=== PATIENT | female | born 1975 | race Caucasian/White ===

== ENCOUNTER 2018-01-06 07:35 | Observation (INO) | payer OTHER, SELFPAY ==
[2018-01-06] MEDS ORDERED: PROMETHAZINE 25 MG/ML VIAL ONE (08:03)
[2018-01-06] MEDS ORDERED: FENTANYL CITR 100 MCG/2 ML ONE ×3 (08:04→21:00)
[2018-01-06] MEDS ORDERED: NA CHLORIDE 0.9% 1,000 ML ONE (08:04)
[2018-01-06 08:34] LABS: Absolute Lymphocytes (CBC) 0.8 K/uL (0.7-4.9); Absolute Monocytes 0.7 K/uL (0.1-1.3); Absolute Neutrophil 13.3 K/uL (1.8-8.0); Basophils % 0.2 % (0-1.3); Eosinophils % 0.1 % (0-4.4); Hematocrit 44.1 % (36.0-45.0); Lymphocytes % 5.2 % (15.3-44.8); MCH 27.8 pg (27.0-35.0); MPV 8.6 fL (7.6-11.3); Monocytes % 4.9 % (3.3-12.3); RBC Red Blood Cell Count 5.25 M/uL (3.86-4.86)
[2018-01-06 08:46] LABS: Potassium 3.7 mEq/L (3.6-5.0)
[2018-01-06 08:52] LABS: Albumin 4.8 g/dL (3.2-5.5); Bilirubin Direct 0.1 mg/dL (0-0.2); Bilirubin Total 0.5 mg/dL (0.3-1.2); Protein, Total 8.2 g/dL (6.0-8.3)
[2018-01-06 09:18] LABS: Blood Morphology Comment NOT SEEN (NOT SEEN); Platelet Estimate ADEQ
--- NOTE | 2018-01-06 09:35 | EDPHYS ---
Physician Documentation [facility] Name: Alda Luu Age: 42 yrs Sex: Female : 1975 Arrival Date: 01/06/2018 Time: 07:39 Bed 14 Private MD: Edilia Long K ED Physician Amaury Zimmer HPI: 01/06 08:24 This 42 yrs old Female presents to ER via Ambulatory with complaints of snw Abdominal Pain, Nausea. 08:24 The patient presents with abdominal pain in the right upper quadrant. Onset: The snw symptoms/episode began/occurred suddenly, at 04:00, and became persistent. The symptoms radiate to right back. Associated signs and symptoms: Pertinent positives: nausea. The symptoms are described as constant. Severity of pain: At its worst the pain was severe incapacitating in the emergency department the pain is unchanged. The patient has not experienced similar symptoms in the past. The patient has not recently seen a physician, the patient's primary care provider is Dr. Dr. Long. Historical: - Allergies: 07:57 NKA; iw - Home Meds: 07:57 None [Active]; iw - PMHx: 07:57 None; iw - PSHx: 07:57 partial hysterectomy; iw 07:57 ; iw - Immunization history:: Adult Immunizations up to date. - Social history:: Smoking status: Patient/guardian denies using tobacco. - Ebola Screening: : No symptoms or risks identified at this time. ROS: 08:24 Eyes: Negative for injury, pain, redness, and discharge, ENT: Negative for injury, snw pain, and discharge, Neck: Negative for injury, pain, and swelling, Cardiovascular: Negative for chest pain, palpitations, and edema, Respiratory: Negative for shortness of breath, cough, wheezing, and pleuritic chest pain, : Negative for injury, bleeding, discharge, and swelling, MS/Extremity: Negative for injury and deformity, Skin: Negative for injury, rash, and discoloration, Neuro: Negative for headache, weakness, numbness, tingling, and seizure. 08:24 Constitutional: Positive for body aches, poor PO intake. 08:24 Abdomen/GI: Positive for abdominal pain, nausea, of the right upper quadrant. 08:24 Back: Positive for pain at rest, radiated pain. Exam: 08:22 Head/Face: Normocephalic, atraumatic. Eyes: Pupils equal round and reactive to light, snw extra-ocular motions intact. Lids and lashes normal. Conjunctiva and sclera are non-icteric and not injected. Cornea within normal limits. Periorbital areas with no swelling, redness, or edema. ENT: Nares patent. No nasal discharge, no septal abnormalities noted. Tympanic membranes are normal and external auditory canals are clear. Oropharynx with no redness, swelling, or masses, exudates, or evidence of obstruction, uvula midline. Mucous membranes moist. Neck: Trachea midline, no thyromegaly or masses palpated, and no cervical lymphadenopathy. Supple, full range of motion without nuchal rigidity, or vertebral point tenderness. No Meningismus. Chest/axilla: Normal chest wall appearance and motion. Nontender with no deformity. No lesions are appreciated. Cardiovascular: Regular rate and rhythm with a normal S1 and S2. No gallops, murmurs, or rubs. Normal PMI, no JVD. No pulse deficits. Respiratory: Lungs have equal breath sounds bilaterally, clear to auscultation and percussion. No rales, rhonchi or wheezes noted. No increased work of breathing, no retractions or nasal flaring. Back: No spinal tenderness. No costovertebral tenderness. Full range of motion. Skin: Warm, dry with normal turgor. Normal color with no rashes, no lesions, and no evidence of cellulitis. MS/ Extremity: Pulses equal, no cyanosis. Neurovascular intact. Full, normal range of motion. Neuro: Awake and alert, GCS 15, oriented to person, place, time, and situation. Cranial nerves II-XII grossly intact. Motor strength 5/5 in all extremities. Sensory grossly intact. Cerebellar exam normal. Normal gait. Psych: Awake, alert, with orientation to person, place and time. Behavior, mood, and affect are within normal limits. 08:22 Constitutional: The patient appears alert, comatose, pale, restless, uncomfortable. 08:22 Abdomen/GI: Inspection: abdomen appears normal, Bowel sounds: normal, Palpation: moderate abdominal tenderness, severe abdominal tenderness, in the right upper quadrant. Vital Signs: 07:52 BP 145 / 101; Pulse 65; Resp 15; Temp 98.2; Pulse Ox 100% ; Pain 8/10; hb 09:41 BP 111 / 68; Pulse 65; Resp 14; Pulse Ox 100% on R/A; hb 10:39 BP 105 / 68; Pulse 62; Resp 18; Pulse Ox 99% on R/A; aj1 11:45 BP 107 / 69; Pulse 65; Resp 18; Pulse Ox 99% ; aj1 12:24 BP 112 / 75; Pulse 71; Resp 18; Pulse Ox 100% on R/A; aj1 MDM: 07:53 Patient medically screened. snw 09:32 Data reviewed: vital signs, nurses notes. Data interpreted: Pulse oximetry: on room air snw is 100 %. Interpretation: normal. Counseling: I had a detailed discussion with the patient and/or guardian regarding: the historical points, exam findings, and any diagnostic results supporting the discharge/admit diagnosis, the presence of at least one elevated blood pressure reading (>120/80) during this emergency department visit, lab results, radiology results, the need for further work-up and treatment in the hospital. Physician consultation: Amaury Zimmer MD was contacted at 09:32, regarding consult, Dr. Zimmer will call Dr. Lantigua for tx plan. 01/06 08:00 Order name: Basic Metabolic Panel; Complete Time: 09:09 snw 01/06 08:00 Order name: CBC with Diff; Complete Time: 09:31 snw 01/06 08:00 Order name: Hepatic Function; Complete Time: 09:09 snw 01/06 08:00 Order name: Lipase; Complete Time: 09:09 snw 01/06 08:00 Order name: Urine Microscopic Only; Complete Time: 10:30 snw 01/06 08:00 Order name: Blood Culture* snw 01/06 08:00 Order name: US Abdomen Limited; Complete Time: 10:06 snw 01/06 09:18 Order name: Manual Differential; Complete Time: 09:31 EDMS 01/06 09:59 Order name: Urine Dipstick--Ancillary (enter results) bd 01/06 09:59 Order name: Urine --Ancillary (enter results) bd 01/06 09:59 Order name: Urine Dipstick-Ancillary; Complete Time: 10:30 EDMS 01/06 09:59 Order name: Urine --Ancillary; Complete Time: 10:30 EDMS 01/06 08:00 Order name: IV Saline Lock; Complete Time: 08:23 snw 01/06 08:00 Order name: Labs collected and sent; Complete Time: 08:23 snw 01/06 08:00 Order name: Urine Dipstick-Ancillary (obtain specimen); Complete Time: 09:48 snw 01/06 09:32 Order name: NPO; Complete Time: 09:41 snw Administered Medications: 08:15 Drug: fentaNYL (PF) 50 mcg Route: IVP; Site: right antecubital; hb 08:15 Drug: Phenergan 6.25 mg Route: IVP; Site: right antecubital; hb 08:15 Drug: NS 0.9% 1000 ml Route: IV; Rate: 125 ml/hr; Site: right antecubital; hb 10:26 Drug: Mefoxin 1 grams Route: IVPB; Infused Over: 30 mins; Site: right antecubital; aj1 Disposition: 01/06/18 09:34 Hospitalization ordered by Toro Lantigua for Observation. Preliminary diagnosis is Cholecystitis. - Bed requested for Telemetry/MedSurg (observation). - Status is Observation. iw - Condition is Stable. - Problem is new. - Symptoms are unchanged. UTI on Admission? No Addendum: 01/08/2018 09:00 Co-signature as Attending Physician, Amaury Zimmer MD I agree with the assessment and c stanley plan of care. Signatures: Dispatcher [employer] EDOH Zuleyma Polanco Angela, RN RN aj1 Amaury Zimmer MD MD cha Therrien, Shelly, DISTRICT LEADER-C DISTRICT LEADER-Csnw Lena Nassar, CARLEY RN Daylin Mccallum RN RN Corrections: (The following items were deleted from the chart) 01/06 09:34 09:33 Chart complete. snw snw 12:33 09:34 Hospitalization Ordered by Toro Lantigua MD for Observation. Preliminary bd diagnosis is Cholecystitis. Bed requested for Telemetry/MedSurg (observation). Status is Observation. Condition is Stable. Problem is new. Symptoms are unchanged. UTI on Admission? No. snw 14:24 12:33 01/06/2018 09:34 Hospitalization Ordered by Toro Lantigua MD for Observation. iw Preliminary diagnosis is Cholecystitis. Bed requested for Telemetry/MedSurg (observation). Status is Observation. Condition is Stable. Problem is new. Symptoms are unchanged. UTI on Admission? No. bd
--- NOTE | 2018-01-06 09:35 | ER ---
Nurse's Notes [facility] Name: Alda Luu Age: 42 yrs Sex: Female : 1975 Arrival Date: 01/06/2018 Time: 07:39 Bed 14 Private MD: Edilia Long K Diagnosis: Cholecystitis Presentation: 01/06 07:55 Presenting complaint: Patient states: RUQ pain that radiates to back and nausea since hb this morning. Transition of care: patient was not received from another setting of care. Onset of symptoms was January 06, 2018. Risk Assessment: Do you want to hurt yourself or someone else? Patient reports no desire to harm self or others. Initial Sepsis Screen: Does the patient meet any 2 criteria? No. Patient's initial sepsis screen is negative. Does the patient have a suspected source of infection? No. Patient's initial sepsis screen is negative. Care prior to arrival: None. 07:55 Method Of Arrival: Ambulatory hb 07:55 Acuity: BERNARDO 3 hb Historical: - Allergies: 07:57 NKA; iw - Home Meds: 07:57 None [Active]; iw - PMHx: 07:57 None; iw - PSHx: 07:57 partial hysterectomy; iw 07:57 ; iw - Immunization history:: Adult Immunizations up to date. - Social history:: Smoking status: Patient/guardian denies using tobacco. - Ebola Screening: : No symptoms or risks identified at this time. Screenin:56 Abuse screen: Denies threats or abuse. Denies injuries from another. Nutritional hb screening: No deficits noted. Tuberculosis screening: No symptoms or risk factors identified. Fall Risk None identified. Assessment: 08:10 General: Appears in no apparent distress. Behavior is cooperative, restless. Pain: Pain hb currently is 8 out of 10 on a pain scale. Neuro: Level of Consciousness is awake, alert, obeys commands, Oriented to person, place, time, situation. Cardiovascular: Heart tones S1 S2 present Capillary refill < 3 seconds Patient's skin is warm and dry. Respiratory: Airway is patent Trachea midline Respiratory effort is even, unlabored, Respiratory pattern is regular, symmetrical, Breath sounds are clear bilaterally. GI: Abdomen is non-distended, Bowel sounds present X 4 quads. Abd is soft X 4 quads Abdomen is tender to palpation in right upper quadrant Reports lower abdominal pain, nausea. : No signs and/or symptoms were reported regarding the genitourinary system. EENT: No signs and/or symptoms were reported regarding the EENT system. Derm: No signs and/or symptoms reported regarding the dermatologic system. Skin is intact, is healthy with good turgor, Skin is pink, warm \T\ dry. Musculoskeletal: No signs and/or symptoms reported regarding the musculoskeletal system. 10:39 General: Appears in no apparent distress. comfortable, Behavior is calm, cooperative, aj1 appropriate for age. Pain: Denies pain. Neuro: Level of Consciousness is awake, alert, obeys commands, Oriented to person, place, time, situation. Cardiovascular: Patient's skin is warm and dry. Respiratory: Airway is patent Respiratory effort is even, unlabored, Respiratory pattern is regular, symmetrical. GI: Abdomen is non-distended, Bowel sounds present X 4 quads. Abd is soft X 4 quads Reports nausea. : No signs and/or symptoms were reported regarding the genitourinary system. EENT: No signs and/or symptoms were reported regarding the EENT system. Derm: No signs and/or symptoms reported regarding the dermatologic system. Skin is pink, warm \T\ dry. normal. Musculoskeletal: No signs and/or symptoms reported regarding the musculoskeletal system. Circulation, motion, and sensation intact. 11:45 Reassessment: Patient appears in no apparent distress at this time. No changes from aj1 previously documented assessment. Patient and/or family updated on plan of care and expected duration. Pain level reassessed. Patient is alert, oriented x 3, equal unlabored respirations, skin warm/dry/pink. 12:25 Reassessment: Patient appears in no apparent distress at this time. No changes from aj1 previously documented assessment. Patient and/or family updated on plan of care and expected duration. Pain level reassessed. Patient is alert, oriented x 3, equal unlabored respirations, skin warm/dry/pink. 13:19 Reassessment: Patient appears in no apparent distress at this time. No changes from aj1 previously documented assessment. Patient and/or family updated on plan of care and expected duration. Pain level reassessed. Patient is alert, oriented x 3, equal unlabored respirations, skin warm/dry/pink. 13:19 Reassessment: Attempted to call report, receiving nurse unavailable to come to the aj1 phone, will call back. 13:47 Reassessment: attempted to call report, receiving nurse giving report to another facility on pt she is transferring. Vital Signs: 07:52 BP 145 / 101; Pulse 65; Resp 15; Temp 98.2; Pulse Ox 100% ; Pain 8/10; hb 09:41 BP 111 / 68; Pulse 65; Resp 14; Pulse Ox 100% on R/A; hb 10:39 BP 105 / 68; Pulse 62; Resp 18; Pulse Ox 99% on R/A; aj1 11:45 BP 107 / 69; Pulse 65; Resp 18; Pulse Ox 99% ; aj1 12:24 BP 112 / 75; Pulse 71; Resp 18; Pulse Ox 100% on R/A; aj1 ED Course: 07:39 Patient arrived in ED. mr 07:40 Edilia Long MD is Private Physician. mr 07:48 Daylin Mccallum, RN is Primary Nurse. hb 07:51 Kinza Peter FNP-C is [facility]. snw 07:52 Amaury Zimmer MD is Attending Physician. snw 07:56 Triage completed. hb 07:56 Arm band placed on left wrist. hb 08:10 Patient has correct armband on for positive identification. Placed in gown. Bed in low hb position. Call light in reach. Side rails up X 1. 08:15 Inserted saline lock: 22 gauge in right antecubital area, using aseptic technique. hb Blood collected. 09:03 Ultrasound completed. Patient tolerated well. Notified CEMENT RUBBER/DENISE olsen . sg3 09:27 US Abdomen Limited In Process Unspecified. EDMS 09:34 Toro Lantigua MD is Hospitalizing Provider. snw 09:52 Blood Culture* Sent. ag 09:52 Urine Microscopic Only Sent. ag 09:52 Urine collected: clean catch specimen, clear, daniel colored. ag Administered Medications: 08:15 Drug: fentaNYL (PF) 50 mcg Route: IVP; Site: right antecubital; hb 08:15 Drug: Phenergan 6.25 mg Route: IVP; Site: right antecubital; hb 08:15 Drug: NS 0.9% 1000 ml Route: IV; Rate: 125 ml/hr; Site: right antecubital; hb 10:26 Drug: Mefoxin 1 grams Route: IVPB; Infused Over: 30 mins; Site: right antecubital; aj1 Outcome: 09:34 Decision to Hospitalize by Provider. snw 14:04 Admitted to Med/surg Report called to CARLEY Myles iw 14:24 Patient left the ED. iw Signatures: Dispatcher [employer] EDNaida Shi RN RN aj1 Kinza Peter, CRIMINAL JUSTICE TEACHER-C CRIMINAL JUSTICE TEACHER-Csnw Kristen Schuster mr Lena Nassar RN RN iw Gallardo, Ana ag Baxter, Heather, RN RN Naty Bejarano 3
--- NOTE | 2018-01-06 09:50 | RAD REPORT ---
EXAM DESCRIPTION: US - Abdomen Exam Limited - 01/06/2018 9:27 am CLINICAL HISTORY: Abdominal pain. COMPARISON: None. FINDINGS: The gallbladder demonstrates a large gallstone in the neck. The gallbladder is filled with echogenic material, presumably sludge and appears distended. Gallbladder wall is mildly thickened 6 mm. The common bile duct is normal measuring 5 mm. The liver demonstrates no findings of intrahepatic biliary dilatation. IMPRESSION: Cholelithiasis with extensive gallbladder sludge and gallbladder distension. The gallbl adder wall is mildly thickened measuring 6 mm. Early acute cholecystitis is a possibility.
[2018-01-06 10:15] LABS: Urine Blood NEGATIVE (NEG); Urine Glucose NEGATIVE (NEG); Urine Protein NEGATIVE (NEG); Urine Specific Gravity 1.015 (1.005-1.030); Urine pH 8.5 (5.0-7.0)
[2018-01-06] MEDS ORDERED: CEFOXITIN/SWI 1gm 1 GM/10 ML SYR IV SCH ×2 (10:15→18:00)
[2018-01-06 10:17] LABS: Urine Bacteria <20 /HPF (<20); Urine RBC <5 /HPF (NONE SEEN)
[2018-01-06 10:18] LABS: Urine Amorphous Sediment 1+ /HPF (NONE SEEN); Urine Culture Reflex Order NOT NEEDED
[2018-01-06] MEDS ORDERED: MORPHINE 4 MG/ML SYR IV PRN ×2 (13:19→22:12)
[2018-01-06] MEDS ORDERED: ONDANSETRON 4 MG/2 ML VIAL IV PRN (13:19)
[2018-01-06] MEDS ORDERED: ACETAMINOPHEN 500 MG TAB PO PRN (13:19)
[2018-01-06] MEDS: D5 0.45 NS 1,000 ML IV SCH ×2 (16:11→21:19)
[2018-01-06] MEDS ORDERED: CEFOXITIN SODIUM 1 GM/VIAL IVPB SCH (17:00)
[2018-01-06] MEDS: CEFOXITIN/SWI 1gm 1 GM/10 ML SYR IV SCH ×2 (18:53→23:27)
--- NOTE | 2018-01-06 20:06 | P.HP ---
Date of Service: 01/06/18 PC:This 41-year-old female presented to the emergency room with severe right upper quadrant abdominal pain for diagnosis and treatment. HPC: Patient will have 4 o'clock in the morning with severe right upper quadrant abdominal pain. Radiating to her back. Describes it as extremely severe. Doubled her over and all she she could do was laying in the position. The she was brought to the bowel emergency room for evaluation. PMH: Negative PSHx: , partial hysterectomy SOC: no known allergies SYS REVIEW: No cough, wheeze, shortness of breath. No chest pain or palpitations. Denies any urinary complaints. States that she has not had a previous episode like this before. O/E OH alert, comfortable at the moment HEENT: not jaundiced Chest: Chest movement equal bilaterally ABD: minimal right upper quadrant tenderness LOCO: intact DATA: has documented gallstones with suspicion of stone stuck at the cystic duct IMPRESSION: acute on chronic cholecystitis with cholelithiasis, biliary colic PLAN: I will take her to the operating room for laparoscopic possible open cholecystectomy with cholangiogram. The risks of this procedure has been discussed. The possibility of bleeding, infection, injury to bowel those blood vessels and antacids has been describes. The possible need for open and/or further surgeries and procedures was discussed. She understands and wants to proceed.
[2018-01-06] MEDS ORDERED: PROPOFOL 200 MG/20 ML VIAL IV ONE (20:12)
[2018-01-06] MEDS ORDERED: ROCURONIUM 50 MG/5 ML VIAL IV ONE (20:12)
[2018-01-06] MEDS ORDERED: LIDOCAINE 2% MPF 5 ML VIAL ONE (20:12)
[2018-01-06] MEDS ORDERED: Ringers Lactate 1,000 ML IV ONE (20:16)
[2018-01-06] MEDS ORDERED: BUPIVACAINE 0.5% Inj,MDV 50 mL VIAL ONE (20:22)
[2018-01-06] MEDS ORDERED: DEXAMETHASONE 10 MG/ML VIAL ONE (20:53)
[2018-01-06] MEDS ORDERED: ONDANSETRON HCL 40 MG/20 ML VIAL ONE (20:54)
[2018-01-06] MEDS ORDERED: KETOROLAC 30 MG/ML INJ ONE (20:54)
[2018-01-06] MEDS ORDERED: GLYCOPYRROLATE 0.2 MG/ML SYR ONE (21:28)
[2018-01-06] MEDS ORDERED: NEOSTIGMINE 1 MG/ML -5 ML SYRINGE ONE (21:28)
--- NOTE | 2018-01-06 22:02 | P.OP ---
Preoperative diagnosis: The acute on chronic cholecystitis with cholelithiasis, biliary colic Postoperative diagnosis: The same Primary procedure: Laparoscopic cholecystectomy Secondary procedure: Intraoperative cholangiogram Anesthesia: General Estimated blood loss: Less than 15 cc Specimen: 1 gallbladder and contents Findings: Distended edematous gallbladder with stone impacted in the neck Operative Technique: The patient was brought to the operating room and placed supine on the table. After the induction of adequate general endotracheal anesthesia, the area of the abdomen was prepped with a DuraPrep solution, and she was draped in usual aseptic manner. A subumbilical incision was made. This was brought down through the skin and subcutaneous tissue. The Visiport was used to enter the peritoneal cavity and created pneumoperitoneum to approximately 12 mm of mercury. Under direct vision , a 5 mm trocar was placed in the upper midline, and another 2 5 mm trocars were placed on the right lateral side of the abdomen. With the patient placed in reverse Trendelenburg and rolled to the left where the visualized right upper quadrant. We could see a markedly distended and edematous gallbladder. The contents were aspirated using an aspirating needle. A grasper was placed on the edematous foote of the gallbladder and applying lateral traction we were able to place another down towards the Moni's pouch. There was a stone loosely stuck in the neck and head area. Adhesions were taken down of the omentum from that area. Gentle dissection was begun to expose cystic duct and artery. Having obtained the critical view, a clip was placed between the gallbladder and the cystic duct. An opening was made into the cystic duct through which we obtained a normal intraoperative cholangiogram. The catheter was now withdrawn. Clips were placed on the distal portion of the cystic the cystic artery was clipped and divided in the usual way. The gallbladder was now dissected free from the liver bed and placed into the Endo a pouch. It was brought up to the umbilical trocar site. Due to the size and edematous nature of the gallbladder was necessary to open the skin as well as the fascia itself. This having been done we were now able to extract this large edematous gallbladder. Attention was turned towards the umbilical trocar site. It was reapproximated using 3 absorbable sutures placed using the Endo Close. The pneumoperitoneum was reestablished. Irrigating fluid was aspirated from the right upper quadrant. The gallbladder fossa was irrigated with saline solution. Adequate hemostasis having been assured, irrigating fluid was aspirated once again from the peritoneal cavity. The anterior abdominal wall was AGUILA blocked using 0.25% Marcaine. The pneumoperitoneum was collapsed, the trocars removed , and reta applied to the skin. At the end of the procedure she was stable and since his recovery room. Needle sponge instrument count were correct. No drains were placed. Once specimen was sent for histopathology. Complications: None Transferred to: Recovery Room Condition: Good
[2018-01-06] MEDS ORDERED: HYDROCODONE/APAP 7.5/325 MG TAB PO PRN (22:12)
--- NOTE | 2018-01-06 22:32 | RAD REPORT ---
EXAM DESCRIPTION: RAD - Cholangiogram Oper-Xray Or - 01/06/2018 10:05 pm CLINICAL HISTORY: Cholecystectomy COMPARISON: None. FINDINGS: Intraoperative fluoroscopic spot images from intraoperative cholangiogram are submitted. C ystic duct injection was performed by operating surgeon. Intra and extrahepatic biliary tree are with in normal limits. There is no evidence of retained common duct stone. IMPRESSION: Negative for retained common duct stone.
[2018-01-07] MEDS: D5 0.45 NS 1,000 ML IV SCH ×2 (02:16→04:51)
[2018-01-07] MEDS: CEFOXITIN/SWI 1gm 1 GM/10 ML SYR IV SCH (05:19)
--- NOTE | 2018-01-07 11:51 | P.DS ---
Admission Date: 01/06/18 Discharge Date: 01/07/18 Disposition: ROUTINE DISCHARGE Discharge Condition: GOOD Reason for Admission: Acute postoperative abdominal pain Procedures: Laparoscopic cholecystectomy with cholangiogram Brief History of Present Illness: Patient presents emergency room with severe right upper quadrant abdominal pain for diagnosis and treatment. She was found to have acute on chronic cholecystitis with cholelithiasis. Hospital Course: The patient was seen evaluated in the emergency room. Was found have acute on chronic cholecystitis with cholelithiasis. She was brought into the hospital and later went for a laparoscopic cholecystectomy with cholangiogram. She tolerated these procedures well, no stones were seen on the cholangiogram. Today she is up ambulating, tolerating a diet, and is anxious to be discharged. Vital Signs/Physical Exam: Temp Pulse Resp BP Pulse Ox 97.5 F 72 20 116/77 97 01/07/18 08:00 01/07/18 08:00 01/07/18 08:00 01/07/18 08:00 01/07/18 08:00 Laboratory Data at Discharge: WBC 14.9 K/uL (4.3-10.9) H 01/06/18 08:15 Hgb 14.6 g/dL (12.0-15.0) 01/06/18 08:15 Hct 44.1 % (36.0-45.0) 01/06/18 08:15 Plt Count 259 K/uL (152-406) 01/06/18 08:15 Sodium 136 mEq/L (135-145) 01/06/18 08:15 Potassium 3.7 mEq/L (3.6-5.0) 01/06/18 08:15 BUN 10 mg/dL (6-20) 01/06/18 08:15 Creatinine 0.79 mg/dL (0.44-1.00) 01/06/18 08:15 Glucose 118 mg/dL (65-120) 01/06/18 08:15 Total Bilirubin 0.5 mg/dL (0.3-1.2) 01/06/18 08:15 AST 24 IU/L (10-42) 01/06/18 08:15 ALT 23 IU/L (10-60) 01/06/18 08:15 Alkaline Phosphatase 81 IU/L (42-121) 01/06/18 08:15 Lipase 28 U/L (22-51) 01/06/18 08:15 Home Medications: Amox/Clavulanate [Augmentin 875-125 Tab*] 1 tab PO BID 01/06/18
== END 2018-01-07 13:12 | disposition home or self-care (01) ==
LOC: ER 07:35 → ERHOLD 09:34 → 2ND 14:03
PROVIDERS: ADMIT Surgery; ATTEND Surgery
PROC: BF00YZZ Plain Radiography of Bile Ducts using Other Contrast (ICD-10-PCS; 2018-01-06)
PROC: 0FT44ZZ Resection of Gallbladder, Percutaneous Endoscopic Approach (ICD-10-PCS; principal; 2018-01-06 08:30)
DX: K80.12 Calculus of gallbladder with acute and chronic cholecystitis without obstruction (principal)
CPT/HCPCS: 36415; 74300; 76705; 80048; 80076; 81003; 81015; 81025; 83690; 85025; 87040; 88304; 96374; 96375; 99285; G0378; J1100; J2405; J2550; J2710; J3010; J7030; Q9967

== ENCOUNTER 2022-06-22 19:43 | Emergency (ER) | payer OTHER ==
--- OUTSIDE RECORDS SUMMARY | 2022-06-22 19:46 | XMS REPORT | Continuity of Care Document ---
:[address] [facility] t Address [address] [place] [address] Dr. Christianson [address] [place] [address] Care Team Providers Name Role Phone PCP, PATIENT DOES NOT HAVE A Primary Care Physician DR ARMAAN Still Attending Clinician Unavailable CHRKEVYN_F Attending Clinician Unavailable David HOWE, Jacqui Cuevas Attending Clinician Unavailable Tiffany Rodriguez Attending Clinician TIFFANY SMITH Attending Clinician Unavailable Doctor Unassigned, [place] Attending Clinician Unavailable DR ARMAAN BRIDGES Admitting Clinician Unavailable EDELMIRA Admitting Clinician Unavailable Payers Payer Name Policy Type Policy Number Effective Date Expiration Date Juan Pablo feliciano [facility] [id number] 2018 [facility] 00:00:00 HEALTHCARE AETNA (POS) [id number] 2014 00:00:00 Problems Condition Condition Condition Status Onset Resolution Last Treating Co mments Source Name Details Category Date Date Treatment Clinician Date Essential Essential Problem Active 2021-07 Swe tayo hypertensi Hypertensi 0-24 Co mmuni on on 00:00: ty [facility] History of History of Problem Active 2021-07 S weeny hypertensi Hypertensi 0-24 Co mmuni on on 00:00: ty 00 [facility] No known No known Disease Unive rs active active ity of problems problems [facility] Allergies, Adverse Reactions, Alerts Allergy Allergy Status Severity Reaction(s) Onset Inactive Treating Comm ents Source Name Type Date Date Clinician MISC-Oth SOURAV Active Severe itching [facility] NO KNOWN Drug Active Univers ALLERGIE Class ity of S [facility] Social History Social Habit Start Date Stop Date Quantity Comments Source Exposure to 2022-01-28 2022-02-07 Yes [facility] SARS-CoV-2 00:00:00 16:48:00 [facility] (event) Branch Tobacco use and 2022-02-07 2022-02-07 Smokeless tobacco Un iversity of exposure 00:00:00 00:00:00 non-user [facility] Alcohol intake 2022-02-07 2022-02-07 Lifetime University of 00:00:00 00:00:00 non-drinker [facility] (finding) Branch Sex Ass[birth year] Universit y of 00:00:00 00:00:00 [facility] Smoking Status Start Date Stop Date Source Never Smoker [facility] Tobacco smoking consumption [facility] Branch Medications Ordered Filled Start Stop Current Ordering Indication Dosage Frequency Signature Comments Components Source Medication Medication Date Date Medication? Clinician (SIG) Name Name fluticasone Yes [id number] 2{spray Use 2 Univers propionate 7-11 } Sprays in ity of 50 00:00: each [place] mcg/actuati 00 nostril in Me dical on nasal the Branch spray morning. fexofenadin Yes [id number] 1{tbl} Take 1 Univers e-pseudoeph 7-11 tablet by ity of edrine 00:00: mouth in [place] (TERRENCE-D) 00 the Medical 60-120 mg morning Branch per tablet and 1 tablet in the evening. fluticasone Yes [id number] 2{spray Use 2 Univers propionate 7-11 } Sprays in ity of 50 00:00: each [place] mcg/actuati 00 nostril in Me dical on nasal the Branch spray morning. fexofenadin Yes [id number] 1{tbl} Take 1 Univers e-pseudoeph 7-11 tablet by ity of edrine 00:00: mouth in [place] (TERRENCE-D) 00 the Medical 60-120 mg morning Branch per tablet and 1 tablet in the evening. fluticasone Yes [id number] 2{spray Use 2 Univers propionate 7-11 } Sprays in ity of 50 00:00: each [place] mcg/actuati 00 nostril in Me dical on nasal the Branch spray morning. fexofenadin Yes [id number] 1{tbl} Take 1 Univers e-pseudoeph 7-11 tablet by wil 00:00: mouth in [place] (TERRENCE-D) 00 the Medical 60-120 mg morning Branch per tablet and 1 tablet in the evening. losartan 25 losartan 25 No losartan [place] mg tablet mg tablet 25 mg Comm uni TAKE 1 TAKE 1 tablet ty TABLET BY TABLET BY TAKE 1 Hos [facility]ber MOUTH EVERY MOUTH EVERY TABLET BY l DAY FOR 90 DAY FOR 90 MOUTH Cl inics DAYS DAYS EVERY DAY FOR 90 DAYS Vital Signs Vital Name Observation Time Observation Value Comments Source BP Diastolic 2022-05-23 00:00:00 77 mm[Hg] [facility] Height 2022-05-23 00:00:00 63 [in_i] [facility] BMI (Body Mass 2022-05-23 00:00:00 34.9 kg/m2 [facility]) [facility] BP Systolic 2022-05-23 00:00:00 110 mm[Hg] [facility] Body Weight 2022-05-23 00:00:00 3155.2 [oz_av] [facility] s Systolic blood 2022-02-07 21:50:00 134 mm[Hg] Univer sity of pressure [facility] Diastolic blood 2022-02-07 21:50:00 88 mm[Hg] Unive rsity of [facility] Heart rate 2022-02-07 21:49:00 98 /min [facility] Body temperature 2022-02-07 21:49:00 37.06 [facility] Respiratory rate 2022-02-07 21:49:00 21 /min [facility] Body height 2022-02-07 21:49:00 160 cm [facility] Body weight 2022-02-07 21:49:00 88.95 kg [facility] BMI 2022-02-07 21:49:00 34.74 kg/m2 [facility] Oxygen saturation in 2022-02-07 21:49:00 99 /min [facility] blood by [facility] Pulse oximetry Branch Height 2018-04-20 04:45:00 160.02 CM Weight 2018-04-20 04:45:00 88.45 KG Procedures Procedure Date / Time Performing Clinician Source Performed DEXA, axial skeleton + 2022-05-23 00:00:00 [facility] vertebral fracture [facility] assessment ASSIGNMENT OF BENEFITS 2022-02-07 21:39:50 Doctor [facility]assigned, [facility] [place] [facility] EXCISION OF TIBIAL NERVE 2018-04-20 00:00:00 [facility] OPEN APPR Center Cholecystectomy 2017-07-31 00:00:00 [facility] Partial Hysterectomy 2005-02-28 00:00:00 [facility] Extraction of [place] Tooth [facility] Delivery [facility] Plan of Care Planned Activity Planned Date Details Comments Source Diagnostic Test Pending 2022-05-23 CMP, serum or [facility] 00:00:00 plasma [code = [facility] ics CMP, serum or plasma] Diagnostic Test Pending 2022-05-23 CBC w/ auto diff [facility] 00:00:00 [code = CBC w/ Hospital Clin ics auto diff] Diagnostic Test Pending 2022-05-23 vitamin D, [facility] 00:00:00 25-hydroxy, [facility] total, serum [code = vitamin D, 25-hydroxy, total, serum] Diagnostic Test Pending 2022-05-23 TSH + free T4, [facility] 00:00:00 serum [code = TSH [facility] + free T4, serum] Diagnostic Test Pending 2022-05-23 HbA1c (hemoglobin [facility] 00:00:00 A1c), blood [code [facility] linics = HbA1c (hemoglobin A1c), blood] Diagnostic Test Pending 2022-05-23 lipid panel w/ [facility] 00:00:00 direct LDL[facility] [code = lipid panel w/ direct LDL, serum] Diagnostic Test Pending 2022-05-23 insulin, serum [facility] 00:00:00 [code = insulin, Hospital inics serum] Instructions [facility] s Encounters Start End Encounter Admission Attending Care Care Encounter Source Date/Time Date/Time Type Type Clinicians Facility Department ID 2019-10-25 Inpatient ERIK KING [facility] [id number] [place] 06:00:00 [facility] 2022-05-31 2022-05-31 Outpatient CHRETIEN_F [facility] [id number] [place] 00:00:00 00:00:00 [facility] 2022-05-23 2022-05-23 Outpatient [facility]RETIEN[facility] [id number] [place] 00:00:00 00:00:00 1024 [facility] 2022-05-23 2022-05-23 Kajal [facility] [place] [facility] [place] 00:00:00 00:00:00 Amy [facility] 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 2022-05-19 2022-05-19 Outpatient CHRETIEN_F [facility] [id number] [place] 00:00:00 00:00:00 1020 [facility] 2022-02-08 2022-02-08 Telephone BRYAN Hernandez [id number] [facility] 00:00:00 00:00:00 Jacqui KEN [id number] i ty of [facility] [id number] Marco as [id number] [address] 2022-02-08 2022-02-08 Telephone [facility] [id number] [facility] 00:00:00 00:00:00 [facility] [id number] i ty of [place] [id number] Marco as MIAN?BLEA [phone] [address] MEDICAL OFFICE BUILDING 2022-02-07 2022-02-07 Urgent [facility] [id number] Univers 18:40:00 18:40:00 Care [facility] [id number] i ty of [place] [id number] Marco as MIAN?BLEA [phone] [place] rommel BLAIR [address] [place] [address] MEDICAL OFFICE BUILDING 2022-02-07 2022-02-07 Outpatient R SARAH [facility] [id number] [facility] 18:40:00 17:02:11 TIFFANY nelson o f [facility] 2022-02-07 2022-02-07 Orders Doctor BRYAN [id number] Univers 00:00:00 00:00:00 Only Unassigned, SUELLEN [id number] ity of [place] [facility] [id number] Marco as [phone] [address] 2018-04-20 2018-04-20 Outpatient Rowena BRIDGES [facility] [id number] [address] [place] [address] 04:39:00 06:55:00 ARMAAN [facility] Results Test Description Test Time Test Comments Results Result Comments Source URINE MONOCLONALFB 2018-04-20 08:01:00 Test Item Value Reference Range Interpretation Comme nts PREG UR (test code = PGU) NEGATIVE NEGATIVE
--- NOTE | 2022-06-22 20:52 | RAD REPORT ---
EXAM DESCRIPTION: RAD - Knee Left 3 View - 06/22/2022 8:30 pm CLINICAL HISTORY: PAIN COMPARISON: No comparisons FINDINGS/IMPRESSION: No acute fracture. No malalignment. No significant focal degenerative changes. Linear sclerosis in the proximal tibial diaphysis unlikely trauma related.
[2022-06-22] MEDS ORDERED: LIDOCAINE 1% MPF 5 ML VIAL ONE (21:17)
[2022-06-22] MEDS ORDERED: HYDROCODONE/APAP 10/325 TAB ONE (21:18)
[2022-06-22] MEDS ORDERED: TETANUS & DIPHTHERIA TOX,ADULT 0.5 ML VIAL ONE (21:18)
[2022-06-22] MEDS ORDERED: LIDOCAINE 1% MPF 30 ML VIAL ONE (21:21)
[2022-06-22] MEDS ORDERED: ONDANSETRON 4 MG/2 ML VIAL ONE (21:32)
[2022-06-22] MEDS ORDERED: ONDANSETRON 4 MG (ODT) TAB ONE (21:33)
--- NOTE | 2022-06-22 22:03 | EDPHYS ---
Physician Documentation [facility] Name: Alda Luu Age: 46 yrs Sex: Female : 1975 Arrival Date: 06/22/2022 Time: 19:46 Bed 12 Private MD: ED Physician Rafael Celeste HPI: 06/22 19:50 This 46 yrs old Female presents to ER via EMS with complaints of Leg Injury. jh7 19:50 The patient presents with a laceration, 6 cm(s), clean, ragged, pain, that is acute. jh7 The complaints affect the left knee. Context: The problem was sustained at home, resulted from the patient falling, while walking, the patient can partially bear weight, must have assistance, from family. Onset: The symptoms/episode began/occurred acutely. 22:41 Patient slipped and fell on a metal walker mat. Unknown date of last tetanus.. 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 - Social history:: Smoking status: unknown. ROS: 22:41 Constitutional: Negative for fever, chills, and weight loss, Eyes: Negative for injury, jh7 pain, redness, and discharge, ENT: Negative for injury, pain, and discharge, Neck: Negative for injury, pain, and swelling, Cardiovascular: Negative for chest pain, palpitations, and edema, Respiratory: Negative for shortness of breath, cough, wheezing, and pleuritic chest pain, Abdomen/GI: Negative for abdominal pain, nausea, vomiting, diarrhea, and constipation, Back: Negative for injury and pain, Neuro: Negative for headache, weakness, numbness, tingling, and seizure. 22:41 MS/extremity: Positive for injury or acute deformity, laceration, tenderness. 22:41 Skin: Positive for laceration(s). 22:41 All other systems are negative. Exam: 22:41 Constitutional: This is a well developed, well nourished patient who is awake, alert, jh7 and in no acute distress. Head/Face: Normocephalic, atraumatic. ENT: Nares patent. No nasal discharge, no septal abnormalities noted. Oropharynx with no redness, swelling, or masses, exudates, or evidence of obstruction, uvula midline. Mucous membranes moist. Neck: Trachea midline, no thyromegaly or masses palpated, and no cervical lymphadenopathy. Supple, full range of motion without nuchal rigidity, or vertebral point tenderness. No Meningismus. Cardiovascular: Regular rate and rhythm with a normal S1 and S2. No gallops, murmurs, or rubs. Normal PMI, no JVD. No pulse deficits. Respiratory: Lungs have equal breath sounds bilaterally, clear to auscultation and percussion. No rales, rhonchi or wheezes noted. No increased work of breathing, no retractions or nasal flaring. Abdomen/GI: Soft, non-tender, with normal bowel sounds. No distension or tympany. No guarding or rebound. No evidence of tenderness throughout. Back: No spinal tenderness. No costovertebral tenderness. Full range of motion. Neuro: Awake and alert, GCS 15, oriented to person, place, time, and situation. Motor strength 5/5 in all extremities. Sensory grossly intact. Normal gait. 22:41 Musculoskeletal/extremity: ROM: intact in all extremities, Circulation is intact in all extremities. Sensation intact. 22:41 Skin: injury, laceration(s), the wound is approximately 6 cm(s), with a depth of 0.5 cm(s), of the left knee. Vital Signs: 19:51 BP 125 / 87; Pulse 87; Resp 20; Temp 98.7(O); Pulse Ox 100% on R/A; Weight 90.26 kg; kd3 Height 5 ft. 3 in. (160.02 cm); Pain 4/10; 22:20 BP 124 / 80; Pulse 71; Resp 18; Pulse Ox 100% on R/A; kd3 19:51 Body Mass Index 35.25 (90.26 kg, 160.02 cm) kd3 Laceration: 22:15 Wound Repair of 6cm ( 2.4in ) subcutaneous laceration to left knee. Irregularly jh7 shaped.. Skin/tissue flap noted.. Distal neuro/vascular/tendon intact. Anesthesia: Local anesthetic administered with 11 mls of 1% lidocaine. Wound prep: Extensive cleansing by me, Copious irrigation. Skin closed with 11 3-0 Prolene using simple sutures and sterile technique. Dressed with pressure dressing. Patient tolerated well. MDM: 19:53 Patient medically screened. [facility] 22:15 Differential diagnosis: open fracture, closed fracture, contusion, Laceration. Data [facility] reviewed: vital signs, nurses notes, radiologic studies, plain films. Data interpreted: Pulse oximetry: is 100 %. Interpretation: normal. Counseling: I had a detailed discussion with the patient and/or guardian regarding: the historical points, exam findings, and any diagnostic results supporting the discharge/admit diagnosis, to return to the emergency department if symptoms worsen or persist or if there are any questions or concerns that arise at home. Special discussion: Return to the ER in 7 to 10 days for suture removal. Monitor for signs and symptoms of infection.. 06/22 20:01 Order name: XRAY Knee LEFT 3 view; Complete Time: 21:09 [facility] 06/22 20:01 Order name: Dressing - Wound; Complete Time: 21:22 [facility] 06/22 20:01 Order name: Gloves, Sterile; Complete Time: 21:14 [facility] 06/22 20:01 Order name: Prolene, Sutures; Complete Time: 21:22 [facility] 06/22 20:01 Order name: Setup Suture Tray; Complete Time: 21:14 [facility] Administered Medications: 21:22 Drug: [place] (HYDROcodone-acetaminophen) 10 mg-325 mg 1 tabs Route: PO; kd3 22:03 Follow up: Response: No adverse reaction; Pain is decreased kd3 21:54 Drug: Lidocaine-Epinephrine -1%: (1:100,000) 20 ml Volume: 20 ml; Route: Infiltration; kd3 22:02 Drug: Tetanus-Diphtheria Toxoid Adult 0.5 ml {Consumer Relations Complaint Clerk: [employer]. Exp: kd3 10/15/2022. Lot #: [id number]. } Route: IM; Site: right deltoid; 22:03 Follow up: Response: No adverse reaction 3 Disposition: 06/23 02:42 Co-signature as Attending Physician, Rafael Celeste MD. rn Disposition Summary: 06/22/22 22:02 Discharge Ordered Location: Home [facility] Problem: new [facility] Symptoms: have improved [facility] Condition: Stable [facility] Diagnosis - Laceration without foreign body, left knee jh7 - Contusion of left knee 7 Followup: 7 - With: Emergency Department - When: 10 - 14 days - Reason: Staple/Suture removal Discharge Instructions: - Discharge Summary Sheet 7 - Laceration Care, Adult [facility] Forms: - Medication Reconciliation Form 7 - Thank You Letter [facility] Prescriptions: - Cephalexin 500 mg Oral Capsule - take 1 capsule by ORAL route every 12 hours for 7 days; 14 capsule; Refills: 0, jh7 Product Selection Permitted Signatures: Dispatcher [employer] EDRafael Cortes MD MD rn Doucette, Kyli, RN RN kd3 Greta Almonte FNP FNP [facility] Corrections: (The following items were deleted from the chart) 06/22 22:42 19:50 Context: The problem was sustained at home, resulted from the patient falling, jh7 while walking, the patient can partially bear weight, must have assistance, from family, [facility]
--- NOTE | 2022-06-22 22:03 | ER ---
Nurse's Notes [facility] Name: Alda Luu Age: 46 yrs Sex: Female : 1975 Arrival Date: 06/22/2022 Time: 19:46 Bed 12 Private MD: Diagnosis: Laceration without foreign body, left knee;Contusion of left knee Presentation: 06/22 19:47 Chief complaint: EMS states: Patient tripped when going out her front door and fell kd3 into a metal welcome mat. pt with laceration to the left knee. bleeding controlled. Coronavirus screen: Vaccine status: Patient reports receiving the 2nd dose of the covid vaccine. Ebola Screen: No symptoms or risks identified at this time. Risk Assessment: Do you want to hurt yourself or someone else? Patient reports no desire to harm self or others. Onset of symptoms was June 22, 2022. 19:47 Method Of Arrival: EMS: [facility] kd3 19:47 Acuity: BERNARDO 3 kd3 19:50 Chief complaint: Parent and/or Guardian states: I slipped off the lip of my garage and kd3 i have a metal doormat and i landed into it on my knee and no one was home so i called 911. I did not hit my head or anything else other than my left knee. 19:51 Initial Sepsis Screen: Does the patient meet any 2 criteria? No. Patient's initial kd3 sepsis screen is negative. Does the patient have a suspected source of infection? No. Patient's initial sepsis screen is negative. 19:53 Coronavirus screen: Vaccine status: Patient reports being unvaccinated. kd3 Triage Assessment: 19:53 General: Appears uncomfortable, Behavior is cooperative, anxious. Pain: Complains of kd3 pain in medial aspect of left knee and left knee. Neuro: Level of Consciousness is awake, alert, obeys commands, Oriented to person, place, time, situation. Musculoskeletal: Circulation, motion, and sensation intact. Injury Description: Laceration sustained to left knee. 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 - Social history:: Smoking status: unknown. Screenin:55 Abuse screen: Denies threats or abuse. Denies injuries from another. Nutritional kd3 screening: No deficits noted. Tuberculosis screening: No symptoms or risk factors identified. Fall Risk None identified. Assessment: 22:20 Reassessment: Patient and/or family updated on plan of care and expected duration. Pain kd3 level reassessed. Patient is alert, oriented x 3, equal unlabored respirations, skin warm/dry/pink. Patient denies pain at this time. Patient states feeling better. General: Appears in no apparent distress. Behavior is calm, cooperative. Vital Signs: 19:51 BP 125 / 87; Pulse 87; Resp 20; Temp 98.7(O); Pulse Ox 100% on R/A; Weight 90.26 kg; kd3 Height 5 ft. 3 in. (160.02 cm); Pain 4/10; 22:20 BP 124 / 80; Pulse 71; Resp 18; Pulse Ox 100% on R/A; kd3 19:51 Body Mass Index 35.25 (90.26 kg, 160.02 cm) kd3 ED Course: 19:46 Patient arrived in ED. ja2 19:48 Triage completed. kd3 19:53 Greta Almonte FNP is [facility]. jh7 19:53 Rafael Celeste MD is Attending Physician. jh7 19:53 Arm band placed on right wrist. kd3 19:55 Patient has correct armband on for positive identification. kd3 20:32 XRAY Knee LEFT 3 view In Process Unspecified. EDMS 21:14 Danitza Solares RN is Primary Nurse. kd3 22:03 No provider procedures requiring assistance completed. Patient did not have IV access kd3 during this emergency room visit. Administered Medications: 21:22 Drug: [place] (HYDROcodone-acetaminophen) 10 mg-325 mg 1 tabs Route: PO; kd3 22:03 Follow up: Response: No adverse reaction; Pain is decreased kd3 21:54 Drug: Lidocaine-Epinephrine -1%: (1:100,000) 20 ml Volume: 20 ml; Route: Infiltration; kd3 22:02 Drug: Tetanus-Diphtheria Toxoid Adult 0.5 ml {Analyst Microbiology Lab: [id number] Exp: kd3 10/15/2022. Lot #: [id number]. } Route: IM; Site: right deltoid; 22:03 Follow up: Response: No adverse reaction kd3 Medication: 22:15 Vaccine Information Statement (VIS) provided today. Questions and/or concerns kd3 addressed. VIS edition date: March 05, 2021. Outcome: 22:02 Discharge ordered by . monico 22:15 Discharged to home with family. kd3 22:15 Condition: stable 22:15 Discharge instructions given to patient, family, Instructed on discharge instructions, follow up and referral plans. medication usage, Demonstrated understanding of instructions, follow-up care, medications, Prescriptions given X 22:20 Patient left the ED. kd3 Signatures: Dispatcher [employer] EDMS Yohana Freed Kyli, RN RN kd3 Greta Almonte, HOME DEMONSTRATION AGENT HOME DEMONSTRATION AGENT 7
[2022-06-22 22:25] VITALS: TEMP 98.7; O2SAT 100
[2022-06-22 22:26] VITALS: BP 124/80
== END 2022-06-22 22:20 | disposition home or self-care (01) ==
LOC: ER 19:43
PROC: 0JQP0ZZ Repair Left Lower Leg Subcutaneous Tissue and Fascia, Open Approach (ICD-10-PCS; principal; 2022-06-22)
DX: S81.012A Laceration without foreign body, left knee, initial encounter (principal); S80.02XA Contusion of left knee, initial encounter; Z23 Encounter for immunization; I10 Essential (primary) hypertension
CPT/HCPCS: 73562; 90471; 90714; 99284; 12002; J2001; Q0162; J2405

== ENCOUNTER 2022-07-08 18:55 | Emergency (ER) | payer OTHER ==
--- OUTSIDE RECORDS SUMMARY | 2022-07-08 18:57 | XMS REPORT | Continuity of Care Document ---
:1975 Author Organization [facility] t Address [address] [place] [address] Dr. Christianson [address] [place] [address] Care Team Providers Name Role Phone PCP, PATIENT DOES NOT HAVE A Primary Care Physician DR ARMAAN Still Attending Clinician Unavailable CHRETIMECHELLE_F Attending Clinician Unavailable David HOWE, Jacqui Cuevas Attending Clinician Unavailable Tiffany Rodriguez Attending Clinician TIFFANY SMITH Attending Clinician Unavailable Doctor Unassigned, [place] Attending Clinician Unavailable DR ARMAAN BRIDGES Admitting Clinician Unavailable EDELMIRA Admitting Clinician Unavailable Payers Payer Name Policy Type Policy Number Effective Date Expiration Date Juan Pablo feliciano [facility] [id number] 2018 [facility] 00:00:00 HEALTHCARE [employer] (POS) [id number] 2014 00:00:00 Problems Condition Condition Condition Status [...] rs active active ity of problems problems [facility] Allergies, Adverse Reactions, Alerts Allergy Allergy Status Severity Reaction(s) Onset Inactive Treating Comm ents Source Name Type Date Date Clinician MISC-Oth SOURAV Active [facility] NO KNOWN Drug Active Univers ALLERGIE Class ity of S [facility] Social History Social Habit Start Date Stop Date Quantity Comments Source Exposure to 2022-01-28 2022-02-07 Yes [facility] SARS-CoV-2 00:00:00 16:48:00 [facility] (event) Branch Tobacco use and 2022-02-07 2022-02-07 Smokeless tobacco Un iversity of exposure 00:00:00 00:00:00 non-user [facility] Alcohol intake 2022-02-07 2022-02-07 Lifetime University of 00:00:00 00:00:00 non-drinker [facility] (finding) Branch Sex Ass[birth year] At [birth year] Universit y of 00:00:00 00:00:00 [facility] Smoking Status Start Date Stop Date Source Never Smoker [facility] Tobacco smoking consumption [facility] Branch Medications Ordered Filled Start Stop Current Ordering Indication Dosage Frequency Signature Comments Components Source Medication Medication Date Date Medication? Clinician (SIG) Name Name fluticasone Yes [id number] 2{spray Use 2 Univers propionate 7-11 } Sprays in ity of 50 00:00: each [place] mcg/actuati 00 nostril in Me dical on nasal the Branch spray morning. fexofenadin Yes [id number] 1{tbl} Take 1 Univers e-pseudoeph 7-11 tablet by ity of edrine 00:00: mouth in [place] (TERRENCE-D) 00 the Medical 60-120 mg morning Branch per tablet and 1 tablet in the evening. fluticasone Yes [id number] 2{spray Use 2 Univers propionate 7-11 } Sprays in ity of 50 00:00: each [place] mcg/actuati 00 nostril in Me dical on nasal the Branch spray morning. fexofenadin Yes [id number] 1{tbl} Take 1 Univers e-pseudoeph 7-11 tablet by ity of edrine 00:00: mouth in [place] (TERRENCE-D) 00 the Medical 60-120 mg morning Branch per tablet and 1 tablet in the evening. fluticasone Yes [id number] 2{spray Use 2 Univers propionate 7-11 } Sprays in ity of 50 00:00: each [place] mcg/actuati 00 nostril in Me dical on nasal the Branch spray morning. fexofenadin Yes [id number] 1{tbl} Take 1 Univers e-pseudoeph 7-11 tablet by wil 00:00: mouth in [place] (TERRENCE-D) 00 the Medical 60-120 mg morning Branch per tablet and 1 tablet in the evening. losartan 25 losartan 25 No losartan [place] mg tablet mg tablet 25 mg Comm uni TAKE 1 TAKE 1 tablet ty TABLET BY TABLET BY TAKE 1 [facility] MOUTH EVERY MOUTH EVERY TABLET BY l DAY FOR 90 DAY FOR 90 MOUTH Cl inics DAYS DAYS EVERY DAY FOR 90 DAYS Vital Signs Vital Name Observation Time Observation Value Comments Source BP Diastolic 2022-05-23 00:00:00 77 mm[Hg] [facility] s Height 2022-05-23 00:00:00 63 [in_i] [facility] s BMI (Body Mass 2022-05-23 00:00:00 34.9 kg/m2 [facility]) [facility] s BP Systolic 2022-05-23 00:00:00 110 mm[Hg] [facility] s Body Weight 2022-05-23 00:00:00 3155.2 [oz_av] [facility] s Systolic blood 2022-02-07 21:50:00 134 mm[Hg] Univer sity of pressure [facility] Diastolic blood 2022-02-07 21:50:00 88 mm[Hg] Unive rsity of [facility] Heart rate 2022-02-07 21:49:00 98 /min [facility] Body temperature 2022-02-07 21:49:00 37.06 [facility] Respiratory rate 2022-02-07 21:49:00 21 /min [facility] Body height 2022-02-07 21:49:00 160 cm [facility] Body weight 2022-02-07 21:49:00 88.95 kg [facility] BMI 2022-02-07 21:49:00 34.74 kg/m2 [facility] Oxygen saturation in 2022-02-07 21:49:00 99 /min [facility] blood by [facility] Pulse oximetry Branch Height 2018-04-20 04:45:00 160.02 CM Weight 2018-04-20 04:45:00 88.45 KG Procedures Procedure Date / Time Performing Clinician Source Performed DEXA, axial skeleton + 2022-05-23 00:00:00 [facility] vertebral fracture [facility] assessment ASSIGNMENT OF BENEFITS 2022-02-07 21:39:50 [facility] [place] [facility] EXCISION OF TIBIAL NERVE 2018-04-20 00:00:00 [facility] OPEN APPR Center Cholecystectomy 2017-07-31 00:00:00 [facility] Partial Hysterectomy 2005-02-28 00:00:00 [facility] Extraction of [place] [facility] Delivery [facility] Plan of Care Planned Activity Planned Date Details Comments Source Diagnostic Test Pending 2022-05-23 CMP, serum or [facility] 00:00:00 plasma [code = [facility] ics CMP, serum or plasma] Diagnostic Test Pending 2022-05-23 CBC w/ auto diff [facility] 00:00:00 [code = CBC w/ Hospital Clin ics auto diff] Diagnostic Test Pending 2022-05-23 vitamin D, [facility] 00:00:00 25-hydroxy, [facility] s total, serum [code = vitamin D, 25-hydroxy, total, serum] Diagnostic Test Pending 2022-05-23 TSH + free T4, [facility] 00:00:00 serum [code = TSH [facility] + free T4, serum] Diagnostic Test Pending 2022-05-23 HbA1c (hemoglobin [facility] 00:00:00 A1c), blood [code [facility] linics = HbA1c (hemoglobin A1c), blood] Diagnostic Test Pending 2022-05-23 lipid panel w/ [facility] 00:00:00 direct LDL, [facility] [code = lipid panel w/ direct LDL, serum] Diagnostic Test Pending 2022-05-23 insulin, serum [facility] 00:00:00 [code = insulin, Hospital inics serum] Instructions [facility] s Encounters Start End Encounter Admission Attending Care Care Encounter Source Date/Time Date/Time Type Type Clinicians Facility Department ID 2019-10-25 Inpatient ERIK [facility] [id number] [place] 06:00:00 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 2022-05-19 2022-05-19 Outpatient CHRETIEN_F [facility] [id number] [place] 00:00:00 00:00:00 [facility]20 [facility] 2022-02-08 2022-02-08 Telephone BRYAN Hernandez [id number] [facility] 00:00:00 00:00:00 Jacqui KEN [id number] i ty of [facility] [id number] Marco as [phone] [address] 2022-02-08 2022-02-08 Telephone [facility] [id number] [facility] 00:00:00 00:00:00 [facility] [id number] i ty of [place] [id number] Marco as MIAN?BLEA [id number] [address] MEDICAL OFFICE BUILDING 2022-02-07 2022-02-07 Urgent [facility] [id number] Univers 18:40:00 18:40:00 Care [facility] [id number] i ty of [place] [id number] Marco as MIAN?BLEA [phone] Oh rommel BLAIR [address] [place] [address] MEDICAL OFFICE BUILDING 2022-02-07 2022-02-07 Outpatient R [facility] [id number] [facility] 18:40:00 17:02:11 TIFFANY nelson o f [facility] 2022-02-07 2022-02-07 Orders Doctor BRYAN [id number] Univers 00:00:00 00:00:00 Only Unassigned, SUELLEN [id number] ity of [place] [facility] [id number] Marco as [id number] [address] 2018-04-20 2018-04-20 Outpatient Rowena BRIDGES [facility] [id number] [address] [place] [address] 04:39:00 06:55:00 ARMAAN [facility] Results Test Description Test Time Test Comments Results Result Comments Source URINE MONOCLONALFB 2018-04-20 08:01:00 Test Item Value Reference Range Interpretation Comme nts PREG UR (test code = PGU) NEGATIVE NEGATIVE
--- NOTE | 2022-07-08 19:28 | EDPHYS ---
Physician Documentation [facility] Name: Alda Luu Age: 46 yrs Sex: Female : 1975 Arrival Date: 07/08/2022 Time: 18:56 Bed Waiting Private MD: ED Physician Gopi Kevin HPI: 07/08 19:27 This 46 yrs old Female presents to ER via Ambulatory with complaints of Suture Removal. snw 19:27 The patient has sutures on the left leg. snw 19:28 Previous treatment: The patient was initially treated on June 23, 2022. snw Sutures/reta progress: The patient has no c/o's. The wound is well-healing with no redness, swelling, discharge, or dehiscence reported. The patient has not experienced similar symptoms in the past. The patient has not recently seen a physician. 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 - Social history:: Smoking status: Patient denies any tobacco usage or history of. Patient/guardian denies using alcohol. ROS: 19:29 Constitutional: Negative for fever, chills, and weight loss, Eyes: Negative for injury, snw pain, redness, and discharge, Neck: Negative for injury, pain, and swelling, Cardiovascular: Negative for chest pain, palpitations, and edema, Respiratory: Negative for shortness of breath, cough, wheezing, and pleuritic chest pain, MS/Extremity: Negative for injury and deformity, Skin: Negative for injury, rash, and discoloration, Neuro: Negative for headache, weakness, numbness, tingling, and seizure. Exam: 19:29 Constitutional: This is a well developed, well nourished patient who is awake, alert, snw and in no acute distress. Head/Face: Normocephalic, atraumatic. Eyes: Pupils equal round and reactive to light, extra-ocular motions intact. Lids and lashes normal. Conjunctiva and sclera are non-icteric and not injected. Cornea within normal limits. Periorbital areas with no swelling, redness, or edema. Respiratory: Lungs have equal breath sounds bilaterally, clear to auscultation and percussion. No rales, rhonchi or wheezes noted. No increased work of breathing, no retractions or nasal flaring. MS/ Extremity: Pulses equal, no cyanosis. Neurovascular intact. Full, normal range of motion. Neuro: Awake and alert, GCS 15, oriented to person, place, time, and situation. Cranial nerves II-XII grossly intact. Motor strength 5/5 in all extremities. Sensory grossly intact. Cerebellar exam normal. Normal gait. 19:29 Skin: Appearance: normal except for affected area, injury, suture removal from left knee, wound edges well approximated. no complaints. Vital Signs: 19:16 BP 146 / 77; Pulse 78; Resp 18; Temp 98.1(TE); Pulse Ox 100% on R/A; Weight 88.9 kg; ld1 Height 5 ft. 3 in. (160.02 cm); Pain 0/10; 19:16 Body Mass Index 34.72 (88.90 kg, 160.02 cm) ld1 MDM: 19:27 Patient medically screened. snw 19:29 Data reviewed: vital signs, nurses notes. Data interpreted: Pulse oximetry: on room air snw is 100 %. Interpretation: normal. Response to treatment: the patient's symptoms have markedly improved after treatment. Administered Medications: No medications were administered Disposition: 07/09 17:27 Co-signature as Attending Physician, Gopi Kevin MD I agree with the assessment and rt plan of care. Disposition Summary: 07/08/22 19:27 Discharge Ordered Location: Home snw Condition: Stable snw Diagnosis - Encounter for removal of sutures snw Followup: snw - With: Emergency Department - When: As needed - Reason: Worsening of condition Followup: snw - With: Private Physician - When: 2 - 3 days - Reason: Recheck today's complaints, Continuance of care, Re-evaluation by your physician Discharge Instructions: - Discharge Summary Sheet snw - Suture Removal, Care After snw - Wound Care, Adult snw Forms: - Medication Reconciliation Form snw - Thank You Letter snw - Antibiotic Education snw - Prescription Opioid Use snw Signatures: Kinza Reagan, DIRECTOR VETERINARY-C DIRECTOR VETERINARY-Csnw Rosenda Gonzalez, RN RN ld1 Gopi Kevin MD MD rt Corrections: (The following items were deleted from the chart) 07/08 19:18 19:17 PSHx: Tonsillectomy; ld1 ld1 19:29 19:27 The patient has sutures on the right leg, snw snw
--- NOTE | 2022-07-08 19:28 | ER ---
Nurse's Notes [facility] Name: Alda Luu Age: 46 yrs Sex: Female : 1975 Arrival Date: 07/08/2022 Time: 18:56 Bed Waiting [facility] MD: Diagnosis: Encounter for removal of sutures Presentation: 07/08 19:16 Chief complaint: Patient states: Suture removal - 11 stitches to left knee. Coronavirus ld1 screen: At this time, the client does not indicate any symptoms associated with coronavirus-19. Ebola Screen: No symptoms or risks identified at this time. Initial Sepsis Screen: Does the patient meet any 2 criteria? No. Patient's initial sepsis screen is negative. Does the patient have a suspected source of infection? No. Patient's initial sepsis screen is negative. Risk Assessment: Do you want to hurt yourself or someone else? Patient reports no desire to harm self or others. Onset of symptoms was July 08, 2022 at 19:17. 19:16 Method Of Arrival: Ambulatory ld1 19:16 Acuity: BERNARDO 5 ld1 Triage Assessment: 19:17 General: Appears in no apparent distress. comfortable, Behavior is calm, cooperative, ld1 appropriate for age. Pain: Denies pain. EENT: No signs and/or symptoms were reported regarding the EENT system. Neuro: Level of Consciousness is awake, alert, obeys commands, Oriented to person, place, time, situation. Cardiovascular: Capillary refill < 3 seconds Patient's skin is warm and dry. Respiratory: Airway is patent Respiratory effort is even, unlabored. GI: Abdomen is flat, non-distended. 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 - Social history:: Smoking status: Patient denies any tobacco usage or history of. Patient/guardian denies using alcohol. Screenin:18 Abuse screen: Denies threats or abuse. Denies injuries from another. Nutritional ld1 screening: No deficits noted. Tuberculosis screening: No symptoms or risk factors identified. Fall Risk None identified. Assessment: 19:18 Reassessment: See triage assessment. ld1 Vital Signs: 19:16 BP 146 / 77; Pulse 78; Resp 18; Temp 98.1(TE); Pulse Ox 100% on R/A; Weight 88.9 kg; ld1 Height 5 ft. 3 in. (160.02 cm); Pain 0/10; 19:16 Body Mass Index 34.72 (88.90 kg, 160.02 cm) ld1 ED Course: 18:56 Patient arrived in ED. as 18:58 Kinza Reagan FNP-C [facility]. snw 18:58 Gopi Kevin MD is Attending Physician. snw 19:17 Triage completed. ld1 19:17 Arm band placed on right wrist. ld1 19:18 Patient has correct armband on for positive identification. Pulse ox on. NIBP on. ld1 19:18 No provider procedures requiring assistance completed. Patient did not have IV access ld1 during this emergency room visit. Administered Medications: No medications were administered Medication: 19:18 VIS not applicable for this client. ld1 Outcome: 19:27 Discharge ordered by . snw 19:34 Patient left the ED. ld1 Signatures: Kinza Reagan FNP-C WARP SPINNER-Carol Oneal Lauren, RN RN ld1 Corrections: (The following items were deleted from the chart) 19:18 19:17 PSHx: Tonsillectomy; ld1 ld1
[2022-07-09 12:59] VITALS: BP 146/77; TEMP 98.1; O2SAT 100
== END 2022-07-08 19:34 | disposition home or self-care (01) ==
LOC: ER 18:55
DX: Z48.02 Encounter for removal of sutures (principal)
CPT/HCPCS: 99282